=== PATIENT | female | born 1985 | race Caucasian/White ===

== ENCOUNTER 2023-10-09 20:06 | Emergency (ER) | payer OTHER, SELFPAY ==
[2023-10-09 22:07] VITALS: BP 127/91; PULSE 102; RESP 19; TEMP 36.8; O2SAT 95; BMI 28.4
[2023-10-09 23:06] LABS: MANUAL DIFF FLAG NO
[2023-10-09 23:08] LABS: Basophils Percent Auto 0.4 % (0-2); Eosinophils Absolute Auto 0.1 X10*3/uL (0.0-0.4); Eosinophils Percent Auto 0.8 % (0-4); Hematocrit 39.9 % (37.0-47.0); Imm Gran Abs Auto 0.02 X10*3/uL (0.00-0.03); Imm Gran Pct Auto 0.2 % (0.0-0.4); Lymphocytes Absolute Auto 2.2 X10*3/uL (1.2-4.9); Lymphocytes Percent Auto 23.4 % (20-40); Mean Corpuscular HGB Conc 32.6 g/dl (31.0-35.0); Mean Corpuscular Hemoglobin 30.2 pg (27.0-33.0); Mean Corpuscular Volume 92.8 fL (80.0-98.0); Mean Platelet Volume 10.1 fL (9.4-12.3); Monocytes Absolute Auto 0.5 X10*3/uL (0.1-1.2); Monocytes Percent Auto 5.7 % (2-11); Neutrophils Absolute Auto 6.5 x10*3/uL (2.0-8.3); Neutrophils Percent Auto 69.5 % (45-73); Platelet Count 175 X10*3/uL (160-400); Red Cell Distribution Width 13.7 % (11.0-16.0); White Blood Count 9.3 X10*3/uL (4.8-10.8)
[2023-10-09 23:17] LABS: Lactic Acid 0.6 mmol/L (0.5-2.0)
[2023-10-09 23:20] LABS: Anion Gap 12 (12-20); Blood Urea Nitrogen 15 mg/dL (9-16); Calcium 9.2 mg/dL (8.4-10.2); Carbon Dioxide 26 mmol/L (22-29); Chloride 105 mmol/L (96-108); Creatinine Clr Calc Pharmacy 92.9; Estimated Glomerular Filt Rate > 60; Glucose Random 108 mg/dL (60-115); Potassium 4.2 mmol/L (3.3-5.1); Sodium 139 mmol/L (135-145)
== END 2023-10-10 00:59 | disposition left against medical advice (07) ==
PROVIDERS: Emergency Provider Emergency Medicine
DX: J34.89 Other specified disorders of nose and nasal sinuses (principal)
CPT/HCPCS: 36415; 80048; 83605; 85025; 87040; 99281; 99283

== ENCOUNTER 2023-10-11 01:54 | Emergency (ER) | payer OTHER, SELFPAY | END 2023-10-11 02:54 | disposition left against medical advice (07) | LOC: HO.ED 02:46 | PROVIDERS: Emergency Provider Emergency Medicine | DX: M54.2 Cervicalgia (principal); M54.9 Dorsalgia, unspecified; M25.519 Pain in unspecified shoulder; Z53.21 Procedure and treatment not carried out due to patient leaving prior to being seen by health care provider ==

== ENCOUNTER 2023-10-11 03:08 | Emergency (ER) | payer OTHER, SELFPAY ==
[2023-10-11 03:21] VITALS: BP 137/92; PULSE 100; RESP 18; TEMP 36.1; O2SAT 97; BMI 27.4
== END 2023-10-11 08:07 | disposition left against medical advice (07) ==
PROVIDERS: Emergency Provider Emergency Medicine
DX: L98.8 Other specified disorders of the skin and subcutaneous tissue (principal); Z53.21 Procedure and treatment not carried out due to patient leaving prior to being seen by health care provider
CPT/HCPCS: 99281

== ENCOUNTER 2023-11-17 04:25 | Emergency (ER) | payer OTHER, SELFPAY ==
--- NOTE | 2023-11-17 04:45 | MHC.EDTECH ---
ALL BELONGINGS IN DECON BY SECURITY
[2023-11-17 04:54] VITALS: BP 119/70; BP 142/92; PULSE 100; PULSE 95; RESP 16; TEMP 36.6; O2SAT 96; O2SAT 97; BMI 20.6
--- NOTE | 2023-11-17 04:56 | PC.NURSE ---
pt was seen putting her hands down her pants and then putting her fingers in her mouth. pt has already been changed over, police liaison officer at bedside and witness to. Report from ems is that the pt is avoiding from going to intermediate.
--- NOTE | 2023-11-17 05:05 | ED.SKABFB ---
HPI - Skin/Abscess/Foreign Bdy General Chief complaint: Skin/Abscess/Foreign Body Stated complaint: abscess/neck pain/in pd custody Time Seen by Provider: 11/17/23 05:00 Source: patient Mode of arrival: ambulatory Limitations: no limitations History of Present Illness ED Provider: jose KEITA narrative: Patient's history of IV drug use in police custody was found for underlying boyfriend's instead of going to police custody comes to ER for multiple small abscesses/scab all over the upper extremity after using IV drugs no fever no chills Related Data Previous Rx's ?Medication ?Instructions ?Recorded cephalexin 500 mg capsule 500 mg PO QID 10 days #40 caps 11/17/23 doxycycline hyclate 100 mg tablet 100 mg PO BID #20 tabs 11/17/23 Allergies Allergy/AdvReac Type Severity Reaction Status Date / Time No Known Allergies Allergy Verified 11/17/23 04:59 Review of Systems Review of Systems: Yes all other systems are reviewed and are negative PMFSH Social History Social History Advance Directives: No Advance Directives Information Provided: Yes Do you have a plan to hurt others: No Plan Physical Exam Vital Signs: Vital Signs: Last Vital Signs Temp 98 F 11/17/23 05:14 Pulse 100 11/17/23 05:14 Resp 16 11/17/23 05:14 BP 119/70 11/17/23 05:14 Pulse Ox 96 11/17/23 05:14 O2 Del Method Room Air 11/17/23 05:14 BMI result Body Mass Index 20.6 Appearance: Alert. Oriented X3. No acute distress. Eyes: PERRLA, ENT: Pharynx normal. Oral Mucosa moist Neck: Normal inspection. Neck supple. CVS: Normal heart rate and rhythm. Pulses normal. Respiratory: No respiratory distress. Equal air entry bilateral, Abdomen: Soft and nontender. Bowel sounds are present, Skin: Skin warm and dry. Multiple scabs or upper extremities no fluctuant abscess, IV track wyatt Extremities: No lower extremity edema. No calf tenderness Neuro: Oriented X 3. Medications Administered Discontinued Medications Generic Name Dose Route Start Last Admin Trade Name Freq PRN Reason Stop Dose Admin Cephalexin HCl 500 mg 11/17/23 05:03 11/17/23 05:09 Cephalexin 500 Mg Capsule PO 11/17/23 05:04 500 mg ONCE ONE Administration Doxycycline Monohydrate 100 mg 11/17/23 05:03 11/17/23 05:09 Doxycycline Monohydrate 100 Mg Capsule PO 11/17/23 05:04 100 mg ONCE ONE Administration Medical Decision Making Medical Decision Making [facility] Narrative: Patient with multiple infected lesions from IVDA will prescribe doxycycline and cephalexin no active abscess at this time Discharge Plan Discharge Clinical Impression: Abscess of skin or subcutaneous tissue Patient Disposition: Home, Self-Care Instructions: Abscess (ED) Additional Instructions: Stop using IV drugs Antibiotic as prescribed Prescriptions: New cephalexin 500 mg capsule 500 mg PO QID 10 Days Qty: 40 0RF doxycycline hyclate 100 mg tablet 100 mg PO BID Qty: 20 0RF Interventions: ED Discharge Assessment Last Done: 11/17/23 05:14 Discharge Date/Time: 11/17/23 05:34 Print Language: [place]
[2023-11-17] MEDS: Doxycycline Monohydrate 100 MG CAPSULE PO (05:09)
[2023-11-17] MEDS: cephALEXin 500 MG CAPSULE PO (05:09)
[2023-11-17 05:14] VITALS: BP 119/70; PULSE 100; RESP 16; TEMP 36.6; O2SAT 96
== END 2023-11-17 05:34 | disposition home or self-care (01) ==
LOC: HO.ED 05:13
PROVIDERS: Emergency Provider Internal Medicine
DX: L02.818 Cutaneous abscess of other sites (principal); R23.4 Changes in skin texture; F19.10 Other psychoactive substance abuse, uncomplicated
CPT/HCPCS: 99282; 99283

== ENCOUNTER 2023-12-02 11:23 | Emergency (ER) | payer OTHER, SELFPAY ==
[2023-12-02 11:27] VITALS: BP 132/77; BP 138/90; PULSE 81; PULSE 88; RESP 14; TEMP 36.4; O2SAT 97; O2SAT 98; BMI 27.4
--- NOTE | 2023-12-02 11:37 | ED.OVERDOSE ---
HPI - Overdose General Stated Complaint: FOUND IN CAR UNCON,ADMITS TO HEROIN USE,NO NARCAN Time Seen by Provider: 12/02/23 11:27 History of Present Illness HPI Narrative: Patient is 38 years old was found in a car less responsive. Patient admits to using heroin earlier in the day. Was not given any Narcan. Woke up spontaneously. Sent to the ED for further evaluation. Patient denies any suicidal homicidal ideation. Has no complaints. Related Data Previous Rx's ?Medication ?Instructions ?Recorded cephalexin 500 mg capsule 500 mg PO QID 10 days #40 caps 11/17/23 doxycycline hyclate 100 mg tablet 100 mg PO BID #20 tabs 11/17/23 Allergies Allergy/AdvReac Type Severity Reaction Status Date / Time No Known Allergies Allergy Verified 12/02/23 11:38 Review of Systems Review of Systems: No fever no chills no chest pain or shortness breath no systemic complaints Yes all other systems are reviewed and are negative [facility] Past Medical History Attestation statement: The following information was validated with the patient. Social History Social History Advance Directives: No Advance Directives Information Provided: Yes Physical Exam Vital Signs: Vital Signs: Appearance: Alert. Oriented X3. No acute distress. Eyes: Pupils equal, round and reactive to light. ENT: Pharynx normal. Neck: Normal inspection. Neck supple. No lymph nodes noted. No crepitus CVS: Normal heart rate and rhythm. Pulses normal. Normal S1 and S2 Respiratory: No respiratory distress. Breath sounds normal. No Wheezing. No rales Abdomen: Soft and nontender. No rigidity. No distention. good BS x4 Skin: Skin warm and dry. Normal skin color. Normal skin turgor. Extremities: No lower extremity edema. Neurovascular intact to all extremities. No Lacerations. No Rash Neuro: Oriented X 3. No motor deficit. No sensory deficit. Moving all extermities. No slurred speech Medical Decision Making Medical Decision Making MDM Narrative: Well-appearing no acute distress. Patient awake alert oriented no distress. Will discharge patient home. Explained to patient the need to stop using narcotics. Differential Diagnosis Differential Diagnoses: The differential diagnosis associated with the presentation includes Hypoglycemia, narcotic overdose Admission/Observation Consideration of admission/observation: Escalation of care including admission/observation considered Independent Historian Clinical information obtained from an independent historian. History obtained from or confirmed by: EMS Chronic Conditions Polysubstance abuse Social Determinants Patient?s care significantly limited by Social Determinants of Health including: Low income, Alcoholism and drug addiction in family and Problems related to primary support group Discharge Plan Discharge Clinical Impression: Narcotic overdose Patient Disposition: Home, Self-Care Instructions: Narcotic Use Disorder (ED) Prescriptions: No Action cephalexin 500 mg capsule 500 mg PO QID 10 Days Qty: 40 0RF doxycycline hyclate 100 mg tablet 100 mg PO BID Qty: 20 0RF Referrals: Physician,None [Primary Care Provider] - (Please go to detox.) Print Language: Lao
[2023-12-02 11:38] VITALS: BP 132/77; PULSE 81; RESP 14; TEMP 36.4; O2SAT 97
--- NOTE | 2023-12-02 11:46 | PC.NURSE ---
Pt brought to ED today by EMS for suspected OD/substance use. Pt found unconscious in passenger seat of car with significant other. Per EMS, Pt was easily aroused and no Narcan was administered. Pt is A&Ox3 with VSS. Provider at bedside for eval and orders given that Pt is cleared fo d/c.
[2023-12-02 11:51] VITALS: BP 132/77; PULSE 81; RESP 14; TEMP 36.4; O2SAT 97
== END 2023-12-02 11:52 | disposition home or self-care (01) ==
PROVIDERS: Emergency Provider Emergency Medicine Emergency Medical Services
DX: T40.1X1A Poisoning by heroin, accidental (unintentional), initial encounter (principal); R40.4 Transient alteration of awareness; Y92.810 Car as the place of occurrence of the external cause
CPT/HCPCS: 99282; 99285